=== PATIENT | male | born 1985 | race African-American/Black ===

== ENCOUNTER 2017-04-22 15:59 | Emergency (ER) | payer OTHER ==
[~2017-04-22 15:59] MED LIST: ATARAX PO; MEDROL DOSEPAK4 MG PO; PERMETHRIN60 GM TP
== END 2017-04-22 18:55 | disposition home or self-care (01) ==
LOC: CFTX 15:59 → CED 15:59 → CFTX 18:00
DX: T22.011A Burn of unspecified degree of right forearm, initial encounter (principal); Z88.0 Allergy status to penicillin; Z79.899 Other long term (current) drug therapy; Z23 Encounter for immunization
CPT/HCPCS: 90471; 90715; 99283